=== PATIENT | male | born 1965 | race Hispanic/Latino ===

== ENCOUNTER 2020-09-06 09:32 | Emergency (ER) | payer OTHER ==
[2020-09-06] MEDS ORDERED: NA CHLORIDE 0.9% 1,000 ML ONE (10:08)
[2020-09-06 10:15] LABS: Absolute Lymphocytes (CBC) 2.6 K/uL (0.7-4.9); Basophils % 1.1 % (0-1.3); Hematocrit 44.5 % (39.6-49.0); Lymphocytes % 25.9 % (15.3-44.8); MPV 9.7 fL (7.6-11.3); RBC Red Blood Cell Count 5.04 M/uL (4.33-5.43)
[2020-09-06 10:34] LABS: ALT/SGPT 53 U/L (12-78); AST/SGOT 25 U/L (15-37); Albumin 3.8 g/dL (3.4-5.0); Alkaline Phosphatase 166 U/L (45-117); BUN Blood Urea Nitrogen 17 mg/dL (7-18); Bicarbonate 27 mmol/L (21-32); Bilirubin Direct 0.1 mg/dL (0-0.2); Bilirubin Total 0.4 mg/dL (0.2-1.0); Creatine Phosphokinase 140 U/L (39-308); Glucose Level 92 mg/dL (74-106); Magnesium 2.3 mg/dL (1.8-2.4); NT PRO-BNP 102 pg/mL (<125); Potassium 3.5 mmol/L (3.5-5.1); Protein, Total 7.8 g/dL (6.4-8.2); Sodium Level 142 mmol/L (136-145); Troponin (Emerg Dept Use Only) < 0.02 ng/mL (0.0-0.045)
--- NOTE | 2020-09-06 12:09 | ER ---
Nurse's Notes [facility] Name: Lowell Metcalf Age: 54 yrs Sex: Male : 1965 Arrival Date: 09/06/2020 Time: 09:33 Bed 2 Private MD: Diagnosis: Pain, unspecified Presentation: 09/06 09:34 Chief complaint: EMS states: Pain all over since last night. Denies other symptoms. BP hb 120/80, HR 82s, BGL 69. Coronavirus screen: At this time, the client does not indicate any symptoms associated with coronavirus-19. Ebola Screen: No symptoms or risks identified at this time. Initial Sepsis Screen: Does the patient meet any 2 criteria? No. Patient's initial sepsis screen is negative. Does the patient have a suspected source of infection? No. Patient's initial sepsis screen is negative. Risk Assessment: Do you want to hurt yourself or someone else? Patient reports no desire to harm self or others. Onset of symptoms was September 06, 2020. 09:34 Method Of Arrival: EMS: [facility] 09:34 Acuity: PASHA 3 hb Triage Assessment: 09:35 General: Appears in no apparent distress. Behavior is calm, cooperative. Pain: Pain hb currently is 4 out of 10 on a pain scale. EENT: No signs and/or symptoms were reported regarding the EENT system. Neuro: Level of Consciousness is awake, alert, obeys commands, Oriented to person, place, time, situation. Cardiovascular: Patient's skin is warm and dry. Respiratory: Respiratory effort is even, unlabored, Respiratory pattern is regular, symmetrical. GI: No signs and/or symptoms were reported involving the gastrointestinal system. : No signs and/or symptoms were reported regarding the genitourinary system. Derm: Skin is pink, warm \\T\\ dry. Musculoskeletal: Reports "pain all over, mostly in back". Historical: - Allergies: :35 No Known Allergies; hb - Home Meds: :35 amlodipine oral [Active]; hb - PMHx: :35 Hypertension; hb - PSHx: :35 None; hb - Immunization history:: Adult Immunizations up to date, Client reports receiving the 2nd dose of the Covid vaccine. - Social history:: Smoking status: Patient denies any tobacco usage or history of. - Family history:: not pertinent. - Hospitalizations: : No recent hospitalization is reported. Screenin:36 Abuse screen: Denies threats or abuse. Denies injuries from another. Nutritional hb screening: No deficits noted. Tuberculosis screening: No symptoms or risk factors identified. Fall Risk None identified. Assessment: 09:36 General: see triage assessment . hb 10:30 Reassessment: Patient appears in no apparent distress at this time. Patient and/or hb family updated on plan of care and expected duration. Pain level reassessed. Patient is alert, oriented x 3, equal unlabored respirations, skin warm/dry/pink. 11:30 Reassessment: Patient appears in no apparent distress at this time. Patient and/or hb family updated on plan of care and expected duration. Pain level reassessed. Patient is alert, oriented x 3, equal unlabored respirations, skin warm/dry/pink. 12:32 Reassessment: Patient appears in no apparent distress at this time. Patient and/or hb family updated on plan of care and expected duration. Pain level reassessed. Patient is alert, oriented x 3, equal unlabored respirations, skin warm/dry/pink. Vital Signs: 09:34 BP 125 / 83; Pulse 67; Resp 16; Temp 98.1; Pulse Ox 100% on R/A; Pain 4/10; hb 11:00 BP 133 / 100; Pulse 78; Resp 15; Pulse Ox 99% on R/A; hb 12:35 BP 134 / 88; Pulse 74; Resp 16; Pulse Ox 99% on R/A; hb ED Course: 09:33 Patient arrived in ED. hb 09:35 Triage completed. hb 09:35 Arm band placed on. hb 09:36 Patient has correct armband on for positive identification. Bed in low position. Call hb light in reach. 09:41 Ryley Triplett MD is Attending Physician. rn 10:00 Inserted saline lock: 20 gauge in right antecubital area, using aseptic technique. hb Blood collected. 10:04 Dorota Easley, ZAIRE is Primary Nurse. hb 12:52 No provider procedures requiring assistance completed. IV discontinued, intact, hb bleeding controlled, No redness/swelling at site. Administered Medications: 10:02 Drug: NS 0.9% 1000 ml Route: IV; Rate: 1000 ml; Site: right antecubital; hb 11:00 Follow up: Response: No adverse reaction; IV Status: Completed infusion; IV Intake: hb 1000ml Intake: 11:00 IV: 1000ml; Total: 1000ml. hb Outcome: 12:09 Discharge ordered by . rn 12:52 Discharged to home ambulatory. hb 12:52 Condition: stable 12:52 Discharge instructions given to patient, Instructed on discharge instructions, follow up and referral plans. medication usage, Demonstrated understanding of instructions, follow-up care, medications. 13:10 Patient left the ED. hb Signatures: Ryley Triplett MD MD rn Dorota Easley RN RN hb
--- NOTE | 2020-09-06 12:09 | EDPHYS ---
Physician Documentation [facility] Name: Lowell Metcalf Age: 54 yrs Sex: Male : 1965 Arrival Date: 09/06/2020 Time: 09:33 Bed 2 Private MD: ED Physician Ryley Triplett HPI: 09/06 12:04 This 54 yrs old Male presents to ER via EMS with complaints of Pain All Over. rn 12:04 Onset: The symptoms/episode began/occurred yesterday. Severity of symptoms: At their rn worst the symptoms were moderate in the emergency department the symptoms are unchanged. The patient has not experienced similar symptoms in the past. The patient has not recently seen a physician. 12:05 Reports began last night with "aches and pains". No fever, no chills. No chest rn pain/sob/abd pain/vomiting/diarrhea. Reports has had similar aches and attributes them to being 54 years old. No known rheumatologic problems. No changes in medication. Does not work outside or feel like over-did it. No supplements. . Historical: - Allergies: 09:35 No Known Allergies; hb - Home Meds: 09:35 amlodipine oral [Active]; hb - PMHx: 09:35 Hypertension; hb - PSHx: 09:35 None; hb - Immunization history:: Adult Immunizations up to date, Client reports receiving the 2nd dose of the Covid vaccine. - Social history:: Smoking status: Patient denies any tobacco usage or history of. - Family history:: not pertinent. - Hospitalizations: : No recent hospitalization is reported. ROS: 12:05 Constitutional: Negative for fever, chills, and weight loss, Eyes: Negative for injury, rn pain, redness, and discharge, Neck: Negative for injury, pain, and swelling, Cardiovascular: Negative for chest pain, palpitations, and edema, Respiratory: Negative for shortness of breath, cough, wheezing, and pleuritic chest pain, Abdomen/GI: Negative for abdominal pain, nausea, vomiting, diarrhea, and constipation, Back: Negative for injury and pain, MS/Extremity: Negative for injury and deformity, Skin: Negative for injury, rash, and discoloration, Neuro: Negative for headache, weakness, numbness, tingling, and seizure. Exam: 11:42 ECG was reviewed by the Attending Physician. rn 12:05 Constitutional: This is a well developed, well nourished patient who is awake, alert, rn and in no acute distress. Head/Face: Normocephalic, atraumatic. Eyes: Pupils equal round and reactive to light, extra-ocular motions intact. Lids and lashes normal. Conjunctiva and sclera are non-icteric and not injected. Cornea within normal limits. Periorbital areas with no swelling, redness, or edema. ENT: MMM Cardiovascular: Regular rate and rhythm. No pulse deficits. Respiratory: No increased work of breathing, no retractions or nasal flaring. Abdomen/GI: soft, non-tender Skin: Warm, dry with normal turgor. Normal color with no rashes, no lesions, and no evidence of cellulitis. MS/ Extremity: Pulses equal, no cyanosis. Neurovascular intact. Full, normal range of motion. Equal circumference. Neuro: Awake and alert, GCS 15, oriented to person, place, time, and situation. Cranial nerves II-XII grossly intact. Motor strength 5/5 in all extremities. Sensory grossly intact. Cerebellar exam normal. Vital Signs: 09:34 BP 125 / 83; Pulse 67; Resp 16; Temp 98.1; Pulse Ox 100% on R/A; Pain 4/10; hb 11:00 BP 133 / 100; Pulse 78; Resp 15; Pulse Ox 99% on R/A; hb 12:35 BP 134 / 88; Pulse 74; Resp 16; Pulse Ox 99% on R/A; hb MDM: 09:41 Patient medically screened. rn 12:05 Differential Diagnosis viral syndrome, arthritis, rhabdomyolysis, electrolyte disorder. rn . Data reviewed: vital signs, nurses notes, lab test result(s), EKG, and as a result, I will discharge patient. Counseling: I had a detailed discussion with the patient and/or guardian regarding: the historical points, exam findings, and any diagnostic results supporting the discharge/admit diagnosis, lab results, the need for outpatient follow up, to return to the emergency department if symptoms worsen or persist or if there are any questions or concerns that arise at home. Response to treatment: the patient's symptoms have mildly improved after treatment, and as a result, I will discharge patient. Special discussion: I discussed with the patient/guardian in detail that at this point there is no indication for admission to the hospital. It is understood, however, that if the symptoms persist or worsen the patient needs to return immediately for re-evaluation. 09/06 09:41 Order name: Basic Metabolic Panel; Complete Time: 11:41 rn 09/06 09:41 Order name: CBC with Diff; Complete Time: 11:41 rn 09/06 09:41 Order name: LFT's; Complete Time: 11:41 rn 09/06 09:41 Order name: Magnesium; Complete Time: 11:41 rn 09/06 09:41 Order name: NT PRO-BNP; Complete Time: 11:41 rn 09/06 09:41 Order name: Troponin (emerg Dept Use Only); Complete Time: 11: rn 09/06 09:41 Order name: EKG; Complete Time: 09:42 rn 09/06 09:41 Order name: Cardiac monitoring; Complete Time: 10:05 rn 09/06 09:41 Order name: EKG - Nurse/Tech; Complete Time: 10:05 rn 09/06 09:41 Order name: IV Saline Lock; Complete Time: 10: rn 09/06 09:41 Order name: Labs collected and sent; Complete Time: 10:05 rn 09/06 09:41 Order name: CK; Complete Time: 11:41 rn 09/06 10:10 Order name: Glucose, Ancillary Testing; Complete Time: 11:41 EDMS 09/06 09:41 Order name: O2 Per Protocol; Complete Time: 10:05 rn 09/06 09:41 Order name: O2 Sat Monitoring; Complete Time: 10:05 rn 09/06 09:41 Order name: Glucose Level; Complete Time: 10:05 rn EC:42 Rate is 71 beats/min. Rhythm is regular. QRS [place] is Normal. UT interval is normal. QRS rn interval is normal. QT interval is normal. No Q waves. T waves are Normal. No ST changes noted. Clinical impression: Normal ECG. Interpreted by me. Reviewed by me. Administered Medications: 10:02 Drug: NS 0.9% 1000 ml Route: IV; Rate: 1000 ml; Site: right antecubital; hb 11:00 Follow up: Response: No adverse reaction; IV Status: Completed infusion; IV Intake: hb 1000ml Disposition: 09/06/20 12:09 Discharged to Home. Impression: Pain, unspecified. - Condition is Stable. - Discharge Instructions: Pain Without a Known Cause. - Medication Reconciliation Form, Thank You Letter, Antibiotic Education, Prescription Opioid Use, Work release form form. - Follow up: Private Physician; When: As needed; Reason: Recheck today's complaints, Re-evaluation by your physician. - Problem is new. - Symptoms have improved. Signatures: Dispatcher [employer] EDTX Ryley Triplett MD MD rn Baxter, Heather, RN RN Corrections: (The following items were deleted from the chart) 13:10 12:09 09/06/2020 12:09 Discharged to Home. Impression: Pain, unspecified. Condition is hb Stable. Forms are Medication Reconciliation Form, Thank You Letter, Antibiotic Education, Prescription Opioid Use. Follow up: Private Physician; When: As needed; Reason: Recheck today's complaints, Re-evaluation by your physician. Problem is new. Symptoms have improved. rn
[2020-09-06 13:29] VITALS: TEMP 98.1
[2020-09-06 13:31] VITALS: O2SAT 99
[2020-09-06 13:32] VITALS: BP 134/88
--- NOTE | 2020-09-06 15:47 | EKG ---
Test Date: 2020-09-06 Test Time: 09:53:39 Audio Video Mechanic: SV MEASUREMENT RESULTS: Intervals: Rate: 71 MS: 144 QRSD: 86 QT: 408 QTc: 443 [place]: P: 20 MS: 144 QRS: 17 T: -1 INTERPRETIVE STATEMENTS: Normal sinus rhythm Normal ECG No previous ECG available for comparison Electronically Signed On 09-06-20 15:46:52 CDT by Stuart Philip
== END 2020-09-06 13:10 | disposition home or self-care (01) ==
LOC: ER 09:32
DX: R52 Pain, unspecified (principal); I10 Essential (primary) hypertension
CPT/HCPCS: 36415; 80048; 80076; 82550; 82947; 83735; 83880; 84484; 85025; 93005; 96360; 99284; J7030